=== PATIENT | male | born 1940 | race Hispanic/Latino ===

== ENCOUNTER 2017-09-02 10:11 | Emergency (ER) | payer OTHER, MEDICARE ==
[2017-09-02] MEDS ORDERED: ACETAMINOPHEN EXTRA STRENGTH 500 MG TABLET ONE (10:49)
[2017-09-02] MEDS ORDERED: LIDOCAINE 5% TOPICAL PATCH TP ONE (10:49)
[2017-09-02] MEDS ORDERED: DIAZEPAM 5 MG TABLET ONE (10:49)
== END 2017-09-02 11:35 | disposition home or self-care (01) ==
LOC: EDH 10:11
DX: M54.2 Cervicalgia (principal); R51 Headache; R50.9 Fever, unspecified; E11.9 Type 2 diabetes mellitus without complications; E78.5 Hyperlipidemia, unspecified; I10 Essential (primary) hypertension